=== PATIENT | female | born 1945 | race Two or more races ===

== ENCOUNTER 2020-01-28 09:34 | Day surgery (SDC) | payer MEDICARE ==
[~2020-01-28] VITALS: Ht 152.4 cm; Wt 68.9 kg
[2020-01-28 10:17] LABS: CALCIUM, SERUM 9.2 mg/dL (8.5-10.1); CREATININE 0.9 mg/dL (0.6-1.3); POTASSIUM 4.2 mmol/L (3.5-5.1)
[2020-01-28] MEDS ORDERED: NITROGLYCERIN 0.4 MG/TAB BOTTLE SL ONE (10:30)
[2020-01-28] MEDS ORDERED: METOPROLOL TARTRATE INJ 5 MG/5 ML AMPUL IVP ONE ×3 (10:30→11:30)
[2020-01-28] MEDS ORDERED: IOHEXOL-350 100 ML VIAL IV ONE (10:48)
[2020-01-28] MEDS ORDERED: IV NS 0.9% 250 ML IV ONE (10:48)
[2020-01-28] MEDS ORDERED: METOPROLOL TARTRATE INJ 5 MG/5 ML AMPUL ONE (11:19)
[2020-01-28] MEDS: METOPROLOL TARTRATE INJ 5 MG/5 ML AMPUL IVP PRN ×2 (11:23→11:29)
[2020-01-28 11:29] VITALS: BP 120/57
--- NOTE | 2020-01-28 11:37 | NUR ---
RN NOTES; CTA procedure, patient awake and verbally responsive, denies pain or discomfort, Patient signed CTA consent, and verbalizes understanding.
--- NOTE | 2020-01-28 12:00 | NUR ---
RN NOTES: Post CTA Patient able to tolerate CTA, no respiratory distress noted, no discomfort noted. Vital signs post CTA BP 125/78, HR 65, RR 18 02 sat 99, 0/10 pain level. Patient stable to discharge home per .
--- NOTE | 2020-01-28 12:05 | NUR ---
RN NOTES; Patient left the hospital accompanied by family in stable condition
== END 2020-01-28 12:00 | disposition home or self-care (01) ==
LOC: CT 09:34
PROVIDERS: ATTEND Internal Medicine Interventional Cardiology
DX: I25.10 Atherosclerotic heart disease of native coronary artery without angina pectoris (principal); J98.11 Atelectasis; M47.814 Spondylosis without myelopathy or radiculopathy, thoracic region
CPT/HCPCS: 36415; 75574; 80048; J3490; J7050; Q9967